=== PATIENT | male | born 1950 | race Caucasian/White ===

== ENCOUNTER 2021-10-25 09:08 | Inpatient (IN) | payer MEDICARE, MEDICAID ==
[2021-10-25 10:23] LABS: #Basophils 0.1 10x3/uL (0.0-0.2); #Eosinphils 0.1 10x3/uL (0.0-0.5); #Monocytes 0.6 10x3/uL (0.0-1.1); #Neutrophils 10.3 10x3/uL (1.5-8.4); %Basophils 0.5 % (0.0-2.0); %Eosinophils 1.1 % (0.0-6.0); %Lymphocytes 10.9 % (18.0-47.0); %Monocytes 5.1 % (0.0-10.0); %Neutrophils 82.1 % (40.0-75.0); Hemoglobin 10.7 g/dL (13.5-17.5); Mean Corpuscular HGB CONC 32.7 g/dL (32.0-36.0); Mean Corpuscular Hemoglobin 30.8 pg (27.0-33.0); Mean Corpuscular Volume 94.2 fl (81.2-95.1); Mean Platelet Volume 9.8 fl (7.4-10.4); Platelet Count 142 10x3/uL (150-450); RBC Distribution Width 17.2 % (11.5-14.5); Red Blood Cell (RBC) Count 3.47 10x6/uL (4.32-5.72); White Blood Cell (WBC) Count 12.5 10x3/uL (3.5-10.5)
[2021-10-25 10:55] LABS: ALT (SGPT) 14 U/L (8-55); Albumin 3.8 g/dL (3.4-4.8); Alkaline Phosphatase 65 U/L (40-110); Anion Gap 17 mmol/L (10-20); BUN (Urea Nitrogen) 35 mg/dL (8.4-25.7); Bilirubin, Total 0.9 mg/dL (0.2-1.2); Calc. Creatinine Clearance 0 mL/min (70-130); Calcium 8.8 mg/dL (7.8-10.44); Carbon Dioxide 21 mmol/L (23-31); Chloride 102 mmol/L (98-107); Estimated GFR 36; Globulin 2.8 g/dL (2.4-3.5); Glucose 87 mg/dL (80-115); Potassium 4.5 mmol/L (3.5-5.1); Protein, Total 6.6 g/dL (5.8-8.1); Sodium 135 mmol/L (136-145)
[2021-10-25 10:59] LABS: AST (SGOT) 35 U/L (5-34)
[2021-10-25 11:18] LABS: CKMB 2.5 ng/mL (0-6.6)
[2021-10-25] MEDS ORDERED: Ondansetron ODT 4 MG TAB PO PRN (13:33)
[2021-10-25] MEDS ORDERED: Ondansetron PF 4 MG/2 ML Vial IVP PRN (13:33)
[2021-10-25] MEDS ORDERED: Dextrose 5% in Water 1,000 ML IV PRN (13:44)
[2021-10-25] MEDS ORDERED: Dextrose 50% Abboject 50 ML SYRINGE SLOW IVP PRN (13:44)
[2021-10-25 14:19] LABS: Bilirubin Neg (Negative); Blood, Urine 10 (Negative); Glucose, Urine (Dipstick) Normal (Negative); Ketone, Urine Negative (Negative); Leukocyte 500 (Negative); Nitrite Negative (Negative); Protein, Urine (Dipstick) 15 mg/dl (Neg-Trace); Specific Gravity, Urine 1.015 (1.002-1.036); Urobilinogen Normal mg/dL (Less than 2)
[2021-10-25 14:30] LABS: Troponin I 0.075 ng/mL (< 0.028)
[2021-10-25 14:38] LABS: Clarity Slightly Cloudy (Clear)
[2021-10-25 14:39] LABS: Bacteria/HPF 3+ HPF (None Seen); RBC/HPF 0-3 HPF (0-3); Squamous Epithelial 0-3 HPF (0-3)
[2021-10-25 15:59] LABS: SARS-CoV-2 NAA Rapid Test Not Detected (NotDetected)
[2021-10-25] MEDS: cefTRIAXone\\ROCEPHIN 1 GM in Sodium Chloride 0.9% 100 ML IVPB SCH (17:39)
[2021-10-25] MEDS: Carvedilol 3.125 MG TAB PO SCH (21:46)
[2021-10-25] MEDS: Icosapent Ethyl 1 GM CAPSULE PO SCH (21:46)
[2021-10-25] MEDS: Gabapentin 300 MG CAP PO SCH (21:47)
[2021-10-25] MEDS: Apixaban 5 MG TAB PO SCH (21:47)
[2021-10-26 04:25] LABS: #Basophils 0.1 10x3/uL (0.0-0.2); #Eosinphils 0.4 10x3/uL (0.0-0.5); #Monocytes 0.9 10x3/uL (0.0-1.1); #Neutrophils 9.1 10x3/uL (1.5-8.4); %Basophils 0.6 % (0.0-2.0); %Eosinophils 2.8 % (0.0-6.0); %Lymphocytes 15.3 % (18.0-47.0); %Monocytes 7.1 % (0.0-10.0); %Neutrophils 73.7 % (40.0-75.0); Hemoglobin 9.6 g/dL (13.5-17.5); Mean Corpuscular HGB CONC 33.2 g/dL (32.0-36.0); Mean Corpuscular Hemoglobin 30.7 pg (27.0-33.0); Mean Corpuscular Volume 92.3 fl (81.2-95.1); Mean Platelet Volume 10.4 fl (7.4-10.4); Platelet Count 129 10x3/uL (150-450); RBC Distribution Width 17.1 % (11.5-14.5); Red Blood Cell (RBC) Count 3.13 10x6/uL (4.32-5.72); White Blood Cell (WBC) Count 12.4 10x3/uL (3.5-10.5)
[2021-10-26 04:27] LABS: Anion Gap 14 mmol/L (10-20); BUN (Urea Nitrogen) 37 mg/dL (8.4-25.7); Calc. Creatinine Clearance 69 mL/min (70-130); Calcium 8.5 mg/dL (7.8-10.44); Carbon Dioxide 23 mmol/L (23-31); Chloride 103 mmol/L (98-107); Estimated GFR 37; Glucose 97 mg/dL (80-115); Potassium 3.6 mmol/L (3.5-5.1); Sodium 136 mmol/L (136-145)
[2021-10-26] MEDS: Allopurinol 300 MG TAB PO SCH (12:29)
[2021-10-26] MEDS: Multivit, Therapeutic 1 TAB PO SCH (12:30)
[2021-10-26] MEDS: Carvedilol 3.125 MG TAB PO SCH ×2 (12:30→23:08)
[2021-10-26] MEDS: Tamsulosin HCl 0.4 MG CAP PO SCH (12:30)
[2021-10-26] MEDS: Icosapent Ethyl 1 GM CAPSULE PO SCH ×2 (12:30→23:08)
[2021-10-26] MEDS: Aspirin 81 mg Enteric Coated Tablet PO SCH (12:30)
[2021-10-26] MEDS: Nystatin Cream 15 GM TUBE TOP SCH ×2 (12:30→12:32)
[2021-10-26] MEDS: Apixaban 5 MG TAB PO SCH ×2 (12:30→23:13)
[2021-10-26 12:41] VITALS: BMI 47.5
[2021-10-26] MEDS: Rifaximin 550 MG TAB PO SCH ×2 (17:48→23:09)
[2021-10-26] MEDS: cefTRIAXone\\ROCEPHIN 1 GM in Sodium Chloride 0.9% 100 ML IVPB SCH (17:48)
[2021-10-26] MEDS: Gabapentin 300 MG CAP PO SCH (23:08)
[2021-10-27] MEDS ORDERED: HYDROcodone/Acetaminophen 5/325 mg Tablet PO SCH (01:15)
[2021-10-27 05:44] LABS: #Basophils 0.1 10x3/uL (0.0-0.2); #Eosinphils 0.1 10x3/uL (0.0-0.5); #Monocytes 0.9 10x3/uL (0.0-1.1); #Neutrophils 12.3 10x3/uL (1.5-8.4); %Basophils 0.5 % (0.0-2.0); %Eosinophils 0.9 % (0.0-6.0); %Lymphocytes 9.2 % (18.0-47.0); %Monocytes 5.8 % (0.0-10.0); %Neutrophils 82.7 % (40.0-75.0); Hemoglobin 9.4 g/dL (13.5-17.5); Mean Corpuscular HGB CONC 33.1 g/dL (32.0-36.0); Mean Corpuscular Volume 93.7 fl (81.2-95.1); Mean Platelet Volume 10.8 fl (7.4-10.4); Platelet Count 138 10x3/uL (150-450); RBC Distribution Width 16.8 % (11.5-14.5); Red Blood Cell (RBC) Count 3.03 10x6/uL (4.32-5.72); White Blood Cell (WBC) Count 14.9 10x3/uL (3.5-10.5)
[2021-10-27 05:54] LABS: Anion Gap 13 mmol/L (10-20); BUN (Urea Nitrogen) 41 mg/dL (8.4-25.7); Calc. Creatinine Clearance 77 mL/min (70-130); Calcium 8.5 mg/dL (7.8-10.44); Carbon Dioxide 23 mmol/L (23-31); Chloride 104 mmol/L (98-107); Estimated GFR 38; Glucose 158 mg/dL (80-115); Potassium 3.7 mmol/L (3.5-5.1); Sodium 136 mmol/L (136-145)
[2021-10-27] MEDS ORDERED: Insulin Regular 300 UNITS/3 ML VIAL ONE (06:18)
[2021-10-27] MEDS: Insulin Regular 300 UNITS/3 ML VIAL SC PRN ×3 (07:37→21:53)
[2021-10-27] MEDS: Tamsulosin HCl 0.4 MG CAP PO SCH (09:56)
[2021-10-27] MEDS: Apixaban 5 MG TAB PO SCH ×2 (09:56→21:47)
[2021-10-27] MEDS: Carvedilol 3.125 MG TAB PO SCH ×2 (09:56→21:48)
[2021-10-27] MEDS: Cholecalciferol 1,000 UNITS (25 MCG) TAB PO SCH (09:57)
[2021-10-27] MEDS: Ascorbic Acid 500 mg Chewable Tablet PO SCH (09:57)
[2021-10-27] MEDS: Aspirin 81 mg Enteric Coated Tablet PO SCH (09:57)
[2021-10-27] MEDS: Allopurinol 300 MG TAB PO SCH (09:57)
[2021-10-27] MEDS: Multivit, Therapeutic 1 TAB PO SCH (09:58)
[2021-10-27] MEDS: Rifaximin 550 MG TAB PO SCH ×3 (09:58→21:47)
[2021-10-27] MEDS: Icosapent Ethyl 1 GM CAPSULE PO SCH ×2 (09:58→21:48)
[2021-10-27] MEDS: Nystatin Cream 15 GM TUBE TOP SCH (10:00)
[2021-10-27] MEDS: Stress 600 With Zinc 1 TAB PO SCH (13:11)
[2021-10-27] MEDS: cefTRIAXone\\ROCEPHIN 1 GM in Sodium Chloride 0.9% 100 ML IVPB SCH (15:35)
[2021-10-27] MEDS: Acetaminophen 325 MG TAB PO PRN (17:21)
[2021-10-27] MEDS: traMADol HCl 50 MG TAB PO PRN ×2 (18:36→22:45)
[2021-10-27] MEDS: Rosuvastatin 20 MG TAB PO SCH (21:47)
[2021-10-27] MEDS: Gabapentin 300 MG CAP PO SCH (21:48)
[2021-10-28] MEDS: traMADol HCl 50 MG TAB PO PRN ×2 (04:01→20:43)
[2021-10-28 04:45] LABS: #Basophils 0.1 10x3/uL (0.0-0.2); #Eosinphils 0.3 10x3/uL (0.0-0.5); #Monocytes 0.9 10x3/uL (0.0-1.1); #Neutrophils 11.1 10x3/uL (1.5-8.4); %Basophils 0.6 % (0.0-2.0); %Eosinophils 2.1 % (0.0-6.0); %Lymphocytes 9.2 % (18.0-47.0); %Monocytes 6.4 % (0.0-10.0); Hemoglobin 9.2 g/dL (13.5-17.5); Mean Corpuscular HGB CONC 33.1 g/dL (32.0-36.0); Mean Corpuscular Hemoglobin 31.4 pg (27.0-33.0); Mean Corpuscular Volume 94.9 fl (81.2-95.1); Platelet Count 136 10x3/uL (150-450); RBC Distribution Width 16.9 % (11.5-14.5); Red Blood Cell (RBC) Count 2.93 10x6/uL (4.32-5.72); White Blood Cell (WBC) Count 13.6 10x3/uL (3.5-10.5)
[2021-10-28 04:51] LABS: Anion Gap 14 mmol/L (10-20); BUN (Urea Nitrogen) 49 mg/dL (8.4-25.7); Calc. Creatinine Clearance 72 mL/min (70-130); Calcium 8.4 mg/dL (7.8-10.44); Carbon Dioxide 22 mmol/L (23-31); Chloride 103 mmol/L (98-107); Estimated GFR 35; Glucose 139 mg/dL (80-115); Potassium 3.8 mmol/L (3.5-5.1); Sodium 135 mmol/L (136-145)
[2021-10-28] MEDS: Rifaximin 550 MG TAB PO SCH ×3 (09:19→20:42)
[2021-10-28] MEDS: Stress 600 With Zinc 1 TAB PO SCH (09:19)
[2021-10-28] MEDS: Allopurinol 300 MG TAB PO SCH (09:19)
[2021-10-28] MEDS: Aspirin 81 mg Enteric Coated Tablet PO SCH (09:19)
[2021-10-28] MEDS: Cholecalciferol 1,000 UNITS (25 MCG) TAB PO SCH (09:19)
[2021-10-28] MEDS: Icosapent Ethyl 1 GM CAPSULE PO SCH ×3 (09:20→20:42)
[2021-10-28] MEDS: Apixaban 5 MG TAB PO SCH ×2 (09:20→20:43)
[2021-10-28] MEDS: Carvedilol 3.125 MG TAB PO SCH ×2 (09:20→20:42)
[2021-10-28] MEDS: Ascorbic Acid 500 mg Chewable Tablet PO SCH (09:20)
[2021-10-28] MEDS: Multivit, Therapeutic 1 TAB PO SCH (09:22)
[2021-10-28] MEDS: Tamsulosin HCl 0.4 MG CAP PO SCH (09:24)
[2021-10-28] MEDS: Nystatin Cream 15 GM TUBE TOP SCH (09:41)
[2021-10-28] MEDS: Insulin Regular 300 UNITS/3 ML VIAL SC PRN ×3 (12:17→20:50)
[2021-10-28] MEDS ORDERED: Furosemide 40 MG/4 ML VIAL SLOW IVP SCH (13:30)
[2021-10-28] MEDS: cefTRIAXone\\ROCEPHIN 1 GM in Sodium Chloride 0.9% 100 ML IVPB SCH (15:32)
[2021-10-28] MEDS ORDERED: Bumetanide 1 MG TAB PO SCH (16:30)
[2021-10-28] MEDS: Acetaminophen 325 MG TAB PO PRN (19:30)
[2021-10-28] MEDS: Gabapentin 300 MG CAP PO SCH (20:42)
[2021-10-28] MEDS: Rosuvastatin 20 MG TAB PO SCH (20:43)
[2021-10-29 05:54] LABS: #Basophils 0.1 10x3/uL (0.0-0.2); #Eosinphils 0.7 10x3/uL (0.0-0.5); #Monocytes 0.8 10x3/uL (0.0-1.1); %Basophils 0.7 % (0.0-2.0); %Eosinophils 5.7 % (0.0-6.0); %Lymphocytes 11.2 % (18.0-47.0); %Monocytes 6.7 % (0.0-10.0); %Neutrophils 75.1 % (40.0-75.0); Mean Corpuscular HGB CONC 33.3 g/dL (32.0-36.0); Mean Corpuscular Hemoglobin 30.6 pg (27.0-33.0); Mean Corpuscular Volume 91.8 fl (81.2-95.1); Mean Platelet Volume 11.1 fl (7.4-10.4); Platelet Count 165 10x3/uL (150-450); RBC Distribution Width 16.8 % (11.5-14.5); Red Blood Cell (RBC) Count 2.94 10x6/uL (4.32-5.72)
[2021-10-29 05:58] LABS: Anion Gap 14 mmol/L (10-20); BUN (Urea Nitrogen) 54 mg/dL (8.4-25.7); Calc. Creatinine Clearance 72 mL/min (70-130); Calcium 8.7 mg/dL (7.8-10.44); Carbon Dioxide 24 mmol/L (23-31); Chloride 101 mmol/L (98-107); Estimated GFR 35; Glucose 155 mg/dL (80-115); Potassium 3.6 mmol/L (3.5-5.1); Sodium 135 mmol/L (136-145)
[2021-10-29] MEDS: Insulin Regular 300 UNITS/3 ML VIAL SC PRN ×2 (06:34→15:51)
[2021-10-29] MEDS ORDERED: Bumetanide 1 MG TAB PO SCH (09:00)
[2021-10-29] MEDS: Stress 600 With Zinc 1 TAB PO SCH (09:15)
[2021-10-29] MEDS: Carvedilol 3.125 MG TAB PO SCH ×2 (09:15→20:17)
[2021-10-29] MEDS: Aspirin 81 mg Enteric Coated Tablet PO SCH (09:15)
[2021-10-29] MEDS: Multivit, Therapeutic 1 TAB PO SCH (09:16)
[2021-10-29] MEDS: Apixaban 5 MG TAB PO SCH ×2 (09:16→20:15)
[2021-10-29] MEDS: Cholecalciferol 1,000 UNITS (25 MCG) TAB PO SCH (09:16)
[2021-10-29] MEDS: Ascorbic Acid 500 mg Chewable Tablet PO SCH (09:16)
[2021-10-29] MEDS: Tamsulosin HCl 0.4 MG CAP PO SCH (09:16)
[2021-10-29] MEDS: Rifaximin 550 MG TAB PO SCH ×2 (09:21→15:51)
[2021-10-29] MEDS: Allopurinol 300 MG TAB PO SCH (09:21)
[2021-10-29] MEDS ORDERED: guaiFENesin ER 600 MG TAB PO SCH (10:30)
[2021-10-29] MEDS: Nystatin Cream 15 GM TUBE TOP SCH (10:41)
[2021-10-29] MEDS: Icosapent Ethyl 1 GM CAPSULE PO SCH ×2 (10:41→20:15)
[2021-10-29] MEDS: cefTRIAXone\\ROCEPHIN 1 GM in Sodium Chloride 0.9% 100 ML IVPB SCH (15:51)
[2021-10-29] MEDS: Rosuvastatin 20 MG TAB PO SCH (20:15)
[2021-10-29] MEDS: Gabapentin 300 MG CAP PO SCH (20:16)
[2021-10-29] MEDS: traMADol HCl 50 MG TAB PO PRN (20:16)
[2021-10-29] MEDS: guaiFENesin ER 600 MG TAB PO SCH (20:17)
[2021-10-29] MEDS: HYDROcodone/Acetaminophen 5/325 mg Tablet PO PRN (23:13)
[2021-10-30 04:53] LABS: #Basophils 0.1 10x3/uL (0.0-0.2); #Eosinphils 0.7 10x3/uL (0.0-0.5); #Monocytes 0.7 10x3/uL (0.0-1.1); #Neutrophils 8.2 10x3/uL (1.5-8.4); %Basophils 1.1 % (0.0-2.0); %Eosinophils 6.7 % (0.0-6.0); %Lymphocytes 10.3 % (18.0-47.0); %Monocytes 5.9 % (0.0-10.0); %Neutrophils 75.2 % (40.0-75.0); Hemoglobin 9.1 g/dL (13.5-17.5); Mean Corpuscular HGB CONC 34.1 g/dL (32.0-36.0); Mean Corpuscular Volume 90.8 fl (81.2-95.1); Platelet Count 182 10x3/uL (150-450); RBC Distribution Width 16.6 % (11.5-14.5); Red Blood Cell (RBC) Count 2.94 10x6/uL (4.32-5.72)
[2021-10-30 04:58] LABS: Anion Gap 14 mmol/L (10-20); BUN (Urea Nitrogen) 48 mg/dL (8.4-25.7); Calc. Creatinine Clearance 84 mL/min (70-130); Calcium 8.8 mg/dL (7.8-10.44); Carbon Dioxide 22 mmol/L (23-31); Chloride 101 mmol/L (98-107); Estimated GFR 42; Glucose 188 mg/dL (80-115); Potassium 3.8 mmol/L (3.5-5.1); Sodium 133 mmol/L (136-145)
[2021-10-30] MEDS: Insulin Regular 300 UNITS/3 ML VIAL SC PRN ×2 (07:14→12:18)
[2021-10-30] MEDS: Carvedilol 3.125 MG TAB PO SCH ×2 (08:46→20:29)
[2021-10-30] MEDS: Ascorbic Acid 500 mg Chewable Tablet PO SCH (08:47)
[2021-10-30] MEDS: Apixaban 5 MG TAB PO SCH ×2 (08:47→20:27)
[2021-10-30] MEDS: Aspirin 81 mg Enteric Coated Tablet PO SCH (08:47)
[2021-10-30] MEDS: Tamsulosin HCl 0.4 MG CAP PO SCH (08:47)
[2021-10-30] MEDS: guaiFENesin ER 600 MG TAB PO SCH ×2 (08:47→20:27)
[2021-10-30] MEDS: Multivit, Therapeutic 1 TAB PO SCH (08:47)
[2021-10-30] MEDS: Stress 600 With Zinc 1 TAB PO SCH (08:47)
[2021-10-30] MEDS: Cholecalciferol 1,000 UNITS (25 MCG) TAB PO SCH (08:47)
[2021-10-30] MEDS: Allopurinol 300 MG TAB PO SCH (08:47)
[2021-10-30] MEDS: Nystatin Cream 15 GM TUBE TOP SCH (08:48)
[2021-10-30] MEDS: Icosapent Ethyl 1 GM CAPSULE PO SCH ×2 (08:49→20:29)
[2021-10-30] MEDS: HYDROcodone/Acetaminophen 5/325 mg Tablet PO PRN ×2 (14:01→20:29)
[2021-10-30] MEDS: cefTRIAXone\\ROCEPHIN 1 GM in Sodium Chloride 0.9% 100 ML IVPB SCH (16:32)
[2021-10-30] MEDS: Rosuvastatin 20 MG TAB PO SCH (20:27)
[2021-10-30] MEDS: Gabapentin 300 MG CAP PO SCH (20:27)
[2021-10-31] MEDS: HYDROcodone/Acetaminophen 5/325 mg Tablet PO PRN ×3 (01:20→20:04)
[2021-10-31] MEDS: Insulin Regular 300 UNITS/3 ML VIAL SC PRN ×2 (05:52→12:33)
[2021-10-31] MEDS ORDERED: Iopamidol 300 61% 100 ML VIAL FS ONE (09:09)
[2021-10-31] MEDS: Carvedilol 3.125 MG TAB PO SCH ×2 (09:13→20:03)
[2021-10-31] MEDS: Aspirin 81 mg Enteric Coated Tablet PO SCH (09:14)
[2021-10-31] MEDS: Ascorbic Acid 500 mg Chewable Tablet PO SCH (09:14)
[2021-10-31] MEDS: Tamsulosin HCl 0.4 MG CAP PO SCH (09:14)
[2021-10-31] MEDS: Multivit, Therapeutic 1 TAB PO SCH (09:14)
[2021-10-31] MEDS: guaiFENesin ER 600 MG TAB PO SCH ×2 (09:15→20:03)
[2021-10-31] MEDS: Allopurinol 300 MG TAB PO SCH (09:15)
[2021-10-31] MEDS: Stress 600 With Zinc 1 TAB PO SCH (09:15)
[2021-10-31] MEDS: Icosapent Ethyl 1 GM CAPSULE PO SCH ×2 (09:15→20:03)
[2021-10-31] MEDS: Nystatin Cream 15 GM TUBE TOP SCH (09:15)
[2021-10-31] MEDS: Apixaban 5 MG TAB PO SCH ×2 (09:15→20:04)
[2021-10-31] MEDS: Cholecalciferol 1,000 UNITS (25 MCG) TAB PO SCH (09:15)
[2021-10-31] MEDS ORDERED: Senokot 8.6 MG TAB PO PRN (10:38)
[2021-10-31] MEDS ORDERED: Polyethylene Glycol 3350 17 GM Packet PO PRN (10:39)
[2021-10-31] MEDS ORDERED: Polyethylene Glycol 3350 17 GM Packet PO SCH (10:45)
[2021-10-31] MEDS: cefTRIAXone\\ROCEPHIN 1 GM in Sodium Chloride 0.9% 100 ML IVPB SCH (14:29)
[2021-10-31] MEDS: Gabapentin 300 MG CAP PO SCH ×2 (14:30→20:04)
[2021-10-31] MEDS: Rosuvastatin 20 MG TAB PO SCH (20:03)
[2021-11-01 04:25] LABS: #Basophils 0.1 10x3/uL (0.0-0.2); #Monocytes 0.7 10x3/uL (0.0-1.1); #Neutrophils 6.6 10x3/uL (1.5-8.4); %Basophils 0.9 % (0.0-2.0); %Eosinophils 10.1 % (0.0-6.0); %Lymphocytes 14.8 % (18.0-47.0); %Monocytes 6.9 % (0.0-10.0); %Neutrophils 66.5 % (40.0-75.0); Hemoglobin 8.9 g/dL (13.5-17.5); Mean Corpuscular HGB CONC 33.6 g/dL (32.0-36.0); Mean Corpuscular Hemoglobin 30.6 pg (27.0-33.0); Mean Corpuscular Volume 91.1 fl (81.2-95.1); Mean Platelet Volume 11.1 fl (7.4-10.4); Platelet Count 261 10x3/uL (150-450); RBC Distribution Width 16.9 % (11.5-14.5); Red Blood Cell (RBC) Count 2.91 10x6/uL (4.32-5.72); White Blood Cell (WBC) Count 9.9 10x3/uL (3.5-10.5)
[2021-11-01 04:39] LABS: Anion Gap 13 mmol/L (10-20); BUN (Urea Nitrogen) 43 mg/dL (8.4-25.7); Calc. Creatinine Clearance 86 mL/min (70-130); Carbon Dioxide 23 mmol/L (23-31); Chloride 106 mmol/L (98-107); Estimated GFR 43; Glucose 204 mg/dL (80-115); Sodium 138 mmol/L (136-145)
[2021-11-01] MEDS: Insulin Regular 300 UNITS/3 ML VIAL SC PRN ×3 (06:36→16:48)
[2021-11-01] MEDS: Aspirin 81 mg Enteric Coated Tablet PO SCH (08:31)
[2021-11-01] MEDS: Multivit, Therapeutic 1 TAB PO SCH (08:31)
[2021-11-01] MEDS: Gabapentin 300 MG CAP PO SCH ×3 (08:31→21:42)
[2021-11-01] MEDS: Tamsulosin HCl 0.4 MG CAP PO SCH (08:32)
[2021-11-01] MEDS: Ascorbic Acid 500 mg Chewable Tablet PO SCH (08:32)
[2021-11-01] MEDS: Cholecalciferol 1,000 UNITS (25 MCG) TAB PO SCH (08:32)
[2021-11-01] MEDS: Stress 600 With Zinc 1 TAB PO SCH (08:32)
[2021-11-01] MEDS: Carvedilol 3.125 MG TAB PO SCH ×2 (08:32→21:13)
[2021-11-01] MEDS: Apixaban 5 MG TAB PO SCH ×2 (08:32→21:13)
[2021-11-01] MEDS: HYDROcodone/Acetaminophen 5/325 mg Tablet PO PRN (08:32)
[2021-11-01] MEDS: Icosapent Ethyl 1 GM CAPSULE PO SCH ×2 (08:33→21:12)
[2021-11-01] MEDS: guaiFENesin ER 600 MG TAB PO SCH ×2 (08:33→21:31)
[2021-11-01] MEDS: Allopurinol 300 MG TAB PO SCH (08:33)
[2021-11-01] MEDS: Nystatin Cream 15 GM TUBE TOP SCH (08:34)
[2021-11-01 12:28] LABS: Hemoglobin A1c 5.7 % (4.0-6.0)
[2021-11-01] MEDS: cefTRIAXone\\ROCEPHIN 1 GM in Sodium Chloride 0.9% 100 ML IVPB SCH (16:46)
[2021-11-01] MEDS: Rosuvastatin 20 MG TAB PO SCH (21:13)
[2021-11-02] MEDS: Insulin Regular 300 UNITS/3 ML VIAL SC PRN (06:44)
[2021-11-02] MEDS: Gabapentin 300 MG CAP PO SCH (09:11)
[2021-11-02] MEDS: Stress 600 With Zinc 1 TAB PO SCH (09:11)
[2021-11-02] MEDS: traMADol HCl 50 MG TAB PO PRN (09:11)
[2021-11-02] MEDS: Tamsulosin HCl 0.4 MG CAP PO SCH (09:11)
[2021-11-02] MEDS: Carvedilol 3.125 MG TAB PO SCH (09:11)
[2021-11-02] MEDS: Allopurinol 300 MG TAB PO SCH (09:12)
[2021-11-02] MEDS: Ascorbic Acid 500 mg Chewable Tablet PO SCH (09:12)
[2021-11-02] MEDS: Apixaban 5 MG TAB PO SCH (09:12)
[2021-11-02] MEDS: Cholecalciferol 1,000 UNITS (25 MCG) TAB PO SCH (09:12)
[2021-11-02] MEDS: Multivit, Therapeutic 1 TAB PO SCH (09:12)
[2021-11-02] MEDS: guaiFENesin ER 600 MG TAB PO SCH (09:12)
[2021-11-02] MEDS: Icosapent Ethyl 1 GM CAPSULE PO SCH (09:12)
[2021-11-02] MEDS: Aspirin 81 mg Enteric Coated Tablet PO SCH (09:12)
[2021-11-02] MEDS: Nystatin Cream 15 GM TUBE TOP SCH (09:13)
[2021-11-02 11:46] VITALS: BP 165/75; TEMP 98
== END 2021-11-02 16:43 | DRG 690 ==
LOC: CSHERS 09:08 → CSHTELE 15:48 → OBSVTOIN 10-27 16:19
PROVIDERS: ADMIT Family Medicine; ATTEND Internal Medicine
DX: N39.0 Urinary tract infection, site not specified (principal); N17.9 Acute kidney failure, unspecified; Z68.42 Body mass index [BMI] 45.0-49.9, adult; E11.22 Type 2 diabetes mellitus with diabetic chronic kidney disease; N18.30 Chronic kidney disease, stage 3 unspecified; I12.9 Hypertensive chronic kidney disease with stage 1 through stage 4 chronic kidney disease, or unspecified chronic kidney disease; E11.40 Type 2 diabetes mellitus with diabetic neuropathy, unspecified; K21.9 Gastro-esophageal reflux disease without esophagitis; N40.0 Benign prostatic hyperplasia without lower urinary tract symptoms; E66.01 Morbid (severe) obesity due to excess calories; I48.0 Paroxysmal atrial fibrillation; I35.0 Nonrheumatic aortic (valve) stenosis; J40 Bronchitis, not specified as acute or chronic; G47.33 Obstructive sleep apnea (adult) (pediatric); B96.20 Unspecified Escherichia coli [E. coli] as the cause of diseases classified elsewhere; Z20.822 Contact with and (suspected) exposure to COVID-19; L89.152 Pressure ulcer of sacral region, stage 2; Z79.01 Long term (current) use of anticoagulants; Z89.511 Acquired absence of right leg below knee; Z99.3 Dependence on wheelchair; Z86.718 Personal history of other venous thrombosis and embolism; Z86.711 Personal history of pulmonary embolism; Z98.890 Other specified postprocedural states; Z87.891 Personal history of nicotine dependence
CPT/HCPCS: 36415; 36416; 70450; 70491; 71045; 76770; 80048; 80053; 81003; 81015; 82553; 83036; 83880; 84484; 85025; 86140; 87040; 87070; 87077; 87086; 87186; 87205; 93005; 93306; 94760; 96374; 97139; G0378; J0696; J1815; J1940; J3490; Q9967; U0002; U0003; U0005